=== PATIENT | male | born 1995 | race Caucasian/White ===

== ENCOUNTER 2017-10-04 10:49 | Emergency (ER) | payer MEDICAID, SELFPAY ==
[2017-10-04 10:53] VITALS: BP 168/84; PULSE 87; RESP 20; TEMP 36.3; O2SAT 97
--- NOTE | 2017-10-04 10:58 | DI.REPORT_ITS ---
SYMPTOM/DIAGNOSIS: TRAUMA WITH DISTAL PHALANX DEFORMITY LEFT MIDDLE FINGER: Three views. No acute fracture or dislocation is identified. No radiopaque foreign bodies are seen in the soft tissues IMPRESSION: No acute fracture or dislocation.
[2017-10-04] MEDS: Lidocaine 2% Multi-Dose 50 ML VIAL IJ (11:06)
--- NOTE | 2017-10-04 11:14 | ED.GENADUL ---
Disposition Clinical Impression: Sprain of left middle finger, Laceration of middle finger with damage to nail Disposition: HOME Condition: Stable Instructions: Finger Laceration (ED), Finger Sprain (ED), RICE Therapy (ED) Additional Instructions: He may utilize [id number] pain medication as needed for pain control and wear the splint over the next 2-3 days and then slowly begin using the affected digit. If you are not showing signs of improvement over the next week please follow-up with orthopedic office for arrangement of outpatient reassessment. Referrals: Bravo Garay MD [ [facility]AFF PHYSICIAN] - 2 weeks (If not improving over the next week please call orthopedic office for reassessment) Medical Decision Making - Radiology Data Radiology results: report reviewed, image reviewed - Medical Decision Making Patient presenting to the emergency department for chief complaint of possible finger dislocation. Patient states his finger got caught behind a piece of wood in a wood splitter. There is a slight laceration to the nailbed so there is concern for dislocation due to deformity versus slight open fracture of the distal phalanx. Otherwise patient denies any other injury or trauma and physical exam is unremarkable beyond noted laceration and deformity of distal phalanx. Sensation and cap refill is intact. Patient gave verbal consent to digital block of the finger and 3 mL's of 2% lidocaine was instilled into the base of the finger without any complications noted. Radiological imaging was also ordered of the finger for again rule out of dislocation versus fracture. After review of radiological imaging that shows no fracture or dislocation patient's finger was reassessed. There is concern for flexor tendon injury so Dr. Garay on-call orthopedist was contacted. He was able to come over and evaluate the patient and stated that more than likely this is just a sprain and not a tear of the flexor tendon and so patient may use a splint if this provides comfort control otherwise may slowly begin resuming normal activity as tolerated by discomfort. Patient was encouraged to use [id number] pain medication ice, and to follow-up with orthopedist if not improving over the next week. After discussion of diagnosis and plan of care with patient patient agreed and stated no further needs, questions, or concerns at this time. History of Present Illness - General Chief complaint: Orthopedic Stated complaint: DISLOCATED FINGER Time Seen by Provider: 10/04/17 10:57 Source: patient, RN notes reviewed Mode of arrival: ambulatory Limitations: no limitations - History of Present Illness Initial comments: Patient reports proximally 1 hour prior to arrival he was attempting to get a piece of wood that was stuck in the turner splitter out when his finger got stuck and injured his left middle finger. He states that it became deformed in this and slightly has a cut on his fingernail. Patient denies any other injury or trauma and states that he has sensation intact at the end of his finger but it is painful with movement. Onset/Timin -: hour(s) Location: left, upper extremity Severity scale (1-10): 7 Quality: aching, sharp Consistency: constant Improves with: none Worsens with: movement Associated Symptoms: denies other symptoms Treatments Prior to Arrival: none - Related Data Levalbuterol [Xopenex Hfa] 2 puff IH Q4H PRN #1 inhaler 07/14/12 Mometasone [Nasonex] 1 sprays NS DAILY #1 bottle 07/14/12 Loratadine 10 mg PO DAILY PRN #60 tab 09/16/14 Allergies Allergy/AdvReac Type Severity Reaction Status Date / Time No Known Drug Allergies Allergy Unverified 08/27/17 09:52 enviornmental Allergy Mild uri Uncoded 08/27/17 09:52 symptoms Review of Systems Constitutional: no symptoms reported Cardiovascular: denies: syncope Musculoskeletal: as per HPI Comment: All other systems reviewed and negative Past Medical History - Past Medical History Medical history: no medical history History of mononucleosis Surgical history: no surgical history Family history: no significant family history - Social History Smoking status: never smoker Alcohol use: occasionally Drug use: none Living Situation: lives with family General Exam - General Limitations: no limitations General appearance: alert, in no apparent distress - Head Head exam: Present: atraumatic - Eye Eye exam: Present: normal apperance - Respiratory Respiratory exam: Absent: respiratory distress - Cardiovascular Cardiovascular Exam: Present: regular rate, normal rhythm - Expanded Upper Extremity Exam Left Elbow exam: Present: normal inspection Forearm Wrist exam: Present: normal inspection, full ROM Hand Wrist exam: Present: swelling (To the distal middle finger), laceration (Slight what appears to be superficial laceration to the left middle finger nailbed), deformity (To the distal phalanx of the middle finger with what appears to be palmar displacement of the distal phalanx). Absent: subungual hematoma Neuro motor exam: Present: wrist extension intact, thumb adduction intact Neurosensory exam: Present: 2-point discrimination Vascular: Present: normal capillary refill (Distal to the injury), radial pulse (2+) - Neurological Exam Neurological exam: Present: alert, oriented X3. Absent: altered - Skin Skin exam: Present: warm, dry Course Vital Signs - 24 hr 10/04/17 10:53 Temperature 36.3 C L Pulse 87 Respiratory 20 Rate Blood Pressure 168/84 Pulse Oximetry 97
--- NOTE | 2017-10-04 11:17 | ED.GENADUL_ITS ---
Disposition Clinical Impression: Sprain of left middle finger, Laceration of middle finger with damage to nail Disposition: HOME Condition: Stable Instructions: Finger Laceration (ED), Finger Sprain (ED), RICE Therapy (ED) Additional Instructions: He may utilize [id number] pain medication as needed for pain control and wear the splint over the next 2-3 days and then slowly begin using the affected digit. If you are not showing signs of improvement over the next week please follow-up with orthopedic office for arrangement of outpatient reassessment. Referrals: Bravo Garay MD [ [facility]FF PHYSICIAN] - 2 weeks (If not improving over the next week please call orthopedic office for reassessment) Medical Decision Making - Radiology Data Radiology results: report reviewed, image reviewed - Medical Decision Making Patient presenting to the emergency department for chief complaint of possible finger dislocation. Patient states his finger got caught behind a piece of wood in a wood splitter. There is a slight laceration to the nailbed so there is concern for dislocation due to deformity versus slight open fracture of the distal phalanx. Otherwise patient denies any other injury or trauma and physical exam is unremarkable beyond noted laceration and deformity of distal phalanx. Sensation and cap refill is intact. Patient gave verbal consent to digital block of the finger and 3 mL's of 2% lidocaine was instilled into the base of the finger without any complications noted. Radiological imaging was also ordered of the finger for again rule out of dislocation versus fracture. After review of radiological imaging that shows no fracture or dislocation patient's finger was reassessed. There is concern for flexor tendon injury so Dr. Garay on-call orthopedist was contacted. He was able to come over and evaluate the patient and stated that more than likely this is just a sprain and not a tear of the flexor tendon and so patient may use a splint if this provides comfort control otherwise may slowly begin resuming normal activity as tolerated by discomfort. Patient was encouraged to use [id number] pain medication ice, and to follow-up with orthopedist if not improving over the next week. After discussion of diagnosis and plan of care with patient patient agreed and stated no further needs, questions, or concerns at this time. History of Present Illness - General Chief complaint: Orthopedic Stated complaint: DISLOCATED FINGER Time Seen by Provider: 10/04/17 10:57 Source: patient, RN notes reviewed Mode of arrival: ambulatory Limitations: no limitations - History of Present Illness Initial comments: Patient reports proximally 1 hour prior to arrival he was attempting to get a piece of wood that was stuck in the turner splitter out when his finger got stuck and injured his left middle finger. He states that it became deformed in this and slightly has a cut on his fingernail. Patient denies any other injury or trauma and states that he has sensation intact at the end of his finger but it is painful with movement. Onset/Timin -: hour(s) Location: left, upper extremity Severity scale (1-10): 7 Quality: aching, sharp Consistency: constant Improves with: none Worsens with: movement Associated Symptoms: denies other symptoms Treatments Prior to Arrival: none - Related Data Levalbuterol [Xopenex Hfa] 2 puff IH Q4H PRN #1 inhaler 07/14/12 Mometasone [Nasonex] 1 sprays NS DAILY #1 bottle 07/14/12 Loratadine 10 mg PO DAILY PRN #60 tab 09/16/14 Allergies Allergy/AdvReac Type Severity Reaction Status Date / Time No Known Drug Allergies Allergy Unverified 08/27/17 09:52 enviornmental Allergy Mild uri Uncoded 08/27/17 09:52 symptoms Review of Systems Constitutional: no symptoms reported Cardiovascular: denies: syncope Musculoskeletal: as per HPI Comment: All other systems reviewed and negative Past Medical History - Past Medical History Medical history: no medical history History of mononucleosis Surgical history: no surgical history Family history: no significant family history - Social History Smoking status: never smoker Alcohol use: occasionally Drug use: none Living Situation: lives with family General Exam - General Limitations: no limitations General appearance: alert, in no apparent distress - Head Head exam: Present: atraumatic - Eye Eye exam: Present: normal apperance - Respiratory Respiratory exam: Absent: respiratory distress - Cardiovascular Cardiovascular Exam: Present: regular rate, normal rhythm - Expanded Upper Extremity Exam Left Elbow exam: Present: normal inspection Forearm Wrist exam: Present: normal inspection, full ROM Hand Wrist exam: Present: swelling (To the distal middle finger), laceration ( Slight what appears to be superficial laceration to the left middle finger nailbed), deformity (To the distal phalanx of the middle finger with what appears to be palmar displacement of the distal phalanx). Absent: subungual hematoma Neuro motor exam: Present: wrist extension intact, thumb adduction intact Neurosensory exam: Present: 2-point discrimination Vascular: Present: normal capillary refill (Distal to the injury), radial pulse (2+) - Neurological Exam Neurological exam: Present: alert, oriented X3. Absent: altered - Skin Skin exam: Present: warm, dry Course Vital Signs - 24 hr 10/04/17 10:53 Temperature 36.3 C L Pulse 87 Respiratory 20 Rate Blood Pressure 168/84 Pulse Oximetry 97
== END 2017-10-04 12:40 | disposition home or self-care (01) ==
PROVIDERS: Emergency Provider Physician Assistant; PCP General Practice
DX: S63.613A Unspecified sprain of left middle finger, initial encounter (principal); S61.313A Laceration without foreign body of left middle finger with damage to nail, initial encounter; W23.0XXA Caught, crushed, jammed, or pinched between moving objects, initial encounter
CPT/HCPCS: 64450; 99283; 73140; 99282

== ENCOUNTER 2017-12-05 09:54 | Outpatient (CLI) | payer MEDICAID, SELFPAY ==
--- NOTE | 2017-12-05 09:44 | DI.RAD_ITS ---
SYMPTOMS/DIAGNOSIS: PAIN LEFT MIDDLE FINGER: Comparison is made with [id number]. No fracture is identified. The joint spaces are well maintained. Again noted is some hyperextension at the distal interphalangeal joint.
== END 2017-12-05 10:14 ==
PROVIDERS: PCP General Practice; Visit Provider Orthopaedic Surgery
DX: M79.645 Pain in left finger(s) (principal)
CPT/HCPCS: 73140

== ENCOUNTER 2017-12-15 23:11 | Emergency (ER) | payer MEDICAID, SELFPAY ==
[2017-12-15 23:16] VITALS: BP 164/86; PULSE 87; RESP 18; TEMP 37.6; O2SAT 98
--- NOTE | 2017-12-15 23:18 | W.ED.GENAD ---
Discharge Plan Disposition Patient Disposition: HOME Condition: Stable Discharge Details Chief Complaint: Nk/Back Pain Clinical Impression: Low back strain Primary Care Provider: Vijay Henry ED Provider: Wilfredo Rockwell Home Meds and New Rx's Prescriptions: New cyclobenzaprine 10 mg tablet 10 mg PO TID PRN (Reason: muscle spasm) Qty: 20 RF: 0 Continue mometasone [Nasonex] 17 GM spray,non-aerosol 1 spry NS DAILY Qty: 1 RF: 2 levalbuterol tartrate [Xopenex HFA] 15 GM HFA aerosol inhaler 2 puff Inhalation Q4H PRN Qty: 1 RF: 1 loratadine 10 MG tablet 10 mg PO DAILY PRNQty: 60 RF: 4 Discharge Instructions Instructions: Low Back Strain (ED) Additional Instructions: take 1000mg tylenol and 600mg ibuprofen every 6 hours for pain as needed. if you need additional pain relief take 1 flexeril, do not drink alcohol or drive if you take this medicine If you have fevers, abdominal pain or difficulty urinating return to the emergency department if pain continues in one week follow up with your primary care provider Discharge Data Discharge Physician: Wilfredo Rockwell Medical Decision Making 22 yo male who was lifting a heavy woodstovfe to try and prove he could do it per pt to this father about two hours ago, when he felt lower back pain acutely. Denies abdominal pain, difficulty urinating, fevers, chills, chest pain, sob or weakness. HAs pain throughout the lumbar region on exam, suspect lumbar strain or less likely disc herniation. No findings on hx or exam to suggest entities such as sea or cauda equina so do not feel emergent mri indicated. Will prescribe muscle relaxers and advised f/u with pcp if pain continues in one week Differential Diagnosis muscle strain, disc herniation HPI General Mode of arrival: ambulatory. Date/Time Provider Initiated Documentation: 12/15/17 23:16. Limitations to Documentation: no limitations. Information obtained by: patient. History of Present Illness 22 year old M presents to the emergency department with the chief complaint of low back pain, described as moderate, with intensity rated at 5. Quality is described as aching, and is localized to the back. Patient reports no radiation. Patient started experiencing this hour(s) (2) and it has been constant. No relieving factors improve symptom(s), No exacerbating factors reported . Patient notes no other symptoms.. Patient did receive the following treatments prior to arrival, none Related Data Home Medications Medication Instructions Recorded Confirmed levalbuterol tartrate [Xopenex HFA] 2 puff INHALATION Q4H PRN #1 07/14/12 12/15/17 inhaler mometasone [Nasonex] 1 spry NS DAILY #1 bottle 07/14/12 12/15/17 loratadine 10 mg PO DAILY PRN #60 tab 09/16/14 12/15/17 cyclobenzaprine 10 mg PO TID PRN #20 tab 12/15/17 Previous Rx's Medication Instructions Recorded cyclobenzaprine 10 mg PO TID PRN #20 tab 12/15/17 Allergies Allergy/AdvReac Type Severity Reaction Status Date / Time No Known Drug Allergies Allergy Unverified 12/15/17 23:24 enviornmental Allergy Mild uri Uncoded 12/15/17 23:24 symptoms Review of Systems Review of Systems All systems reviewed & are unremarkable except as noted in HPI and below Constitutional Denies chills, Denies fever(s) and Denies weakness ENT Denies change in voice Cardiovascular Denies chest pain and Denies dyspnea Respiratory Denies dyspnea Gastrointestinal Denies abdominal pain, Denies nausea and Denies vomiting Genitourinary Denies dysuria Integumentary/Breasts Denies rash Neurologic Denies weakness Psychiatric Denies depression Allergic/Immunologic Denies urticaria PFSH Family History Mother Essential hypertension Father Essential hypertension Grandfather Essential hypertension Maternal Aunt Diabetes [place] Asthma Medical History Allergic rhinitis Anxiety Asthma Social History Smoking/Tobacco Use Status: Never Surgical History GALLSTONES IN INFANT Exam Const General: no acute distress Orientation: alert HENMT Head: normal to inspection Ears: external ears normal General nose exam: external nose normal Mouth: moist mucous membranes Eyes General: appearance normal, both eyes and all related structures Neck Neck: normal visual inspection Resp Effort & Inspection: normal respiratory effort and able to speak in complete sentences Cardio Rate: regular rate Back/Spine/Pelvis Back: no CVA tenderness Cervical Spine: No cervical muscular tenderness Thoracic/Lumbar Spine: other (tenderness throughout the lumbar region, no stpeoffs or other palpable deformities, no saddle anesthesia and intact lower extremity sensation) Skin General skin exam: no rashes or lesions noted Neuro General: alert and oriented x3 Cognition: normal cognition Speech: speech normal Gait: normal gait Motor: muscle tone normal throughout Sensory Exam: no sensory deficits noted Extrem General: normal to inspection Psych Mental Status: mental status grossly normal
[2017-12-15] MEDS: Cyclobenzaprine 10 MG TAB PO (23:33)
== END 2017-12-15 23:47 | disposition home or self-care (01) ==
LOC: ER 23:46
PROVIDERS: Emergency Provider Emergency Medicine; PCP General Practice
DX: S39.012A Strain of muscle, fascia and tendon of lower back, initial encounter (principal); X50.0XXA Overexertion from strenuous movement or load, initial encounter
CPT/HCPCS: 99283

== ENCOUNTER 2018-04-01 11:33 | Outpatient (CLI) | payer MEDICAID, SELFPAY ==
[2018-04-03 15:28] LABS: Tissue Transglutaminase Ab IgA <1.2 U/mL; Tissue Transglutaminase Ab IgG 2.4 U/mL
== END 2018-04-01 11:53 ==
PROVIDERS: PCP General Practice; Visit Provider General Practice
DX: R19.7 Diarrhea, unspecified (principal)
CPT/HCPCS: 36415; 83516

== ENCOUNTER 2018-04-04 15:05 | Outpatient (CLI) | payer MEDICAID, SELFPAY ==
[2018-04-04 15:41] LABS: HCT 46.9 % (40.0-50.0); HGB 15.7 g/dL (13.5-17.5); Mean Corp. HGB Concentration 33.5 g/dL (32.0-36.0); Mean Corpuscular Volume 83.8 fL (80-95); Mean Platelet Volume 11.1 fL (8.0-11.0); Platelet Count 194 x1000/uL (130-400)
[2018-04-04 16:32] LABS: ALT 96 U/L (12-78); AST 37 U/L (15-37); Albumin 3.9 g/dL (3.4-5.0); Alkaline Phosphatase 100 U/L (46-116); Anion Gap 7.9 mmol/L (3-11); BUN 16 mg/dL (7-18); Bilirubin, Total 0.2 mg/dL (0.2-1.0); CO2 28.1 mmol/L (21.0-32.0); CREATININE 1.04 mg/dL (0.70-1.30); Calcium 9.2 mg/dL (8.5-10.1); Chloride 103 mmol/L (98-107); Glucose 107 mg/dL (70-100); Sodium 139 mmol/L (136-145); Total Protein 7.9 g/dL (6.4-8.2)
== END 2018-04-04 15:25 ==
PROVIDERS: PCP General Practice; Visit Provider General Practice
DX: R10.9 Unspecified abdominal pain (principal)
CPT/HCPCS: 36415; 80053; 85027

== ENCOUNTER 2018-04-16 21:25 | Emergency (ER) | payer MEDICAID, SELFPAY ==
[2018-04-16 21:44] VITALS: BP 167/100; PULSE 92; RESP 20; TEMP 36.8; O2SAT 97
[2018-04-16 23:29] LABS: Bilirubin Negative (Negative); Blood Negative (Negative); Clarity Clear; Glucose Negative (Negative); Ketones Negative (Negative); Leukocyte Esterase Negative (Negative); Nitrite Negative (Negative); Specific Gravity 1.025 (1.005-1.025); Urobilinogen 0.2 EU/dL (Up TO 0.2); pH 5.5 (5-8)
[2018-04-16 23:44] LABS: Abs Immature Grans 0.03 k/cumm (0.0-0.09); HCT 43.8 % (40.0-50.0); Mean Corp. HGB Concentration 34.2 g/dL (32.0-36.0); Mean Corpuscular Hemoglobin 28.4 pg (27.0-33.0); Mean Corpuscular Volume 82.8 fL (80-95); Mean Platelet Volume 11.4 fL (8.0-11.0); Platelet Count 168 x1000/uL (130-400); RBC 5.29 m/cumm (4.50-6.00); RBC Distribution Width 13.1 % (11.8-14.1)
[2018-04-16 23:59] LABS: ALT 85 U/L (12-78); AST 34 U/L (15-37); Absolute Basophil Count 0.22 k/cumm (0.0-0.2); Absolute Eosinophil Count 1.64 k/cumm (0.0-0.7); Absolute Lymphocyte Count 4.03 k/cumm (1.2-3.4); Absolute Monocyte Count 1.31 k/cumm (0.11-0.7); Absolute Neutrophil Count 3.71 k/cumm (1.2-6.7); Albumin 3.5 g/dL (3.4-5.0); Alkaline Phosphatase 87 U/L (46-116); Anion Gap 8.2 mmol/L (3-11); Atypical Lymphocytes % 0; BUN 16 mg/dL (7-18); Bilirubin, Total 0.2 mg/dL (0.2-1.0); CO2 28.8 mmol/L (21.0-32.0); CREATININE 0.88 mg/dL (0.70-1.30); Calcium 9.3 mg/dL (8.5-10.1); Chloride 104 mmol/L (98-107); Glucose 104 mg/dL (70-100); Lipase 81 U/L (73-393); RBC Morphology Normal; Sodium 141 mmol/L (136-145); Total Protein 7.5 g/dL (6.4-8.2)
--- NOTE | 2018-04-16 23:59 | NUR.NOTE ---
Nursing Note: Pt in no acute distress, texting on cell phone while sitting in bed. will continue to monitor.
--- NOTE | 2018-04-17 00:04 | W.ED.GENAD ---
Discharge Plan Disposition Patient Disposition: HOME Condition: Stable Discharge Details Chief Complaint: Abd Prob Clinical Impression: Abdominal pain Reason For Visit: abd pain Primary Care Provider: Vijay Henry ED Provider: Haroon Rosario Home Meds and New Rx's Prescriptions: Continued mometasone [Nasonex] 17 GM spray,non-aerosol 1 spry NS DAILY Qty: 1 RF: 2 levalbuterol tartrate [Xopenex HFA] 15 GM HFA aerosol inhaler 2 puff Inhalation Q4H PRN Qty: 1 RF: 1 loratadine 10 MG tablet 10 mg PO DAILY PRNQty: 60 RF: 4 cyclobenzaprine 10 mg tablet 10 mg PO TID PRN (Reason: muscle spasm) Qty: 20 RF: 0 Discharge Instructions Instructions: Abdominal Pain (ED) Additional Instructions: For further discomfort please take acetaminophen 650-1000 mg every 6 hours as needed for pain. Please return immediately to the emergency department for new or worsening symptoms, fever chills, persistent vomiting, or any further concerns you may have. Otherwise it is strongly encourage that you keep your follow-up appointment with general surgery for arrangement of your colonoscopy. Referrals: [facility] [Provider Group] (Keep your appointment as scheduled for Saturday) Discharge Data Discharge Date/Time-TO BE ENTERED AT DEPARTURE: 04/17/18 00:35 Medical Decision Making Patient presenting to the emergency department for chief complaint of abdominal pain. Patient states that this is been going on for months but today while talking to his father which is recently diagnosed with diverticulitis he is wondering if his symptoms are consistent with diverticulitis. Patient states intermittent epigastric discomfort after eating that he is also had some bloody stools for 2 months. Patient has seen multiple ER providers along with his primary care provider which has arranged for him to have a surgical consult next week for colonoscopy. Patient denies fever chills, vomiting, lack of bowel movements. Physical exam shows some left lower quadrant tenderness which is mild to palpation otherwise and on exam. Patient does report recent CT scan and no mention of diverticuli. Given the patient's age and duration of symptoms I highly doubt diverticulitis. Plan to check labs and review previous CT imaging but I do not feel that repeat imaging is worth it at this time given patient's age and ongoing symptoms with surgical consult for colonoscopy which I feel may be more revealing of true diagnosis. Review of labs is reassuring with nondiagnostic CMP, CBC showing nonspecific mild leukocytosis without signs of shift, normal urinalysis normal lipase. Review of CT scan from less than 1 month ago shows no inflammatory bowel changes, no diverticuli, no other acute findings noted. Given this I did discuss with patient risk versus benefit of CT scan given that he does have colonoscopy arranged for early next week. After discussion we agreed upon no CT imaging at this time as I feel that it is not required but for patient to use acetaminophen for pain, return to the emergency department as needed, and otherwise keep appointment with general surgery for next week. After discussion of diagnosis and plan of care patient has no further needs, questions, or concerns and states clear understanding to return to the emergency department for any worsening symptoms. HPI General Date/Time Provider Initiated Documentation: 04/16/18 21:54. Limitations to Documentation: no limitations. Information obtained by: patient, RN notes reviewed and old records reviewed. History of Present Illness 23 year old M presents to the emergency department with the chief complaint of abd pain, described as moderate, with intensity rated at 6. Quality is described as aching, and is localized to the abdomen. Patient started experiencing this month(s) (2) and it has been constant and intermittent. No relieving factors improve symptom(s), Eating worsens symptoms . Patient notes no other symptoms.. Patient did receive the following treatments prior to arrival, none Related Data Home Medications Medication Instructions Recorded Confirmed levalbuterol tartrate [Xopenex HFA] 2 puff INHALATION Q4H PRN #1 07/14/12 12/15/17 inhaler mometasone [Nasonex] 1 spry NS DAILY #1 bottle 07/14/12 12/15/17 loratadine 10 mg PO DAILY PRN #60 tab 09/16/14 12/15/17 cyclobenzaprine 10 mg PO TID PRN #20 tab 12/15/17 Previous Rx's Medication Instructions Recorded cyclobenzaprine 10 mg PO TID PRN #20 tab 12/15/17 Allergies Allergy/AdvReac Type Severity Reaction Status Date / Time No Known Drug Allergies Allergy Unverified 12/15/17 23:24 enviornmental Allergy Mild uri Uncoded 12/15/17 23:24 symptoms General Stated Complaint: Abd Prob ALLISON: 3 Review of Systems Constitutional Denies chills, Denies fever(s) and Reports poor appetite Cardiovascular Denies chest pain and Denies dyspnea Respiratory Denies cough and Denies dyspnea Gastrointestinal Reports as per HPI, Reports abdominal pain, Denies melena, Reports hematochezia, Denies change in bowel habits, Denies constipation, Reports diarrhea, Denies nausea and Denies vomiting Genitourinary Denies hematuria, Denies difficulty urinating, Denies urinary hesitancy, Denies urinary incontinence and Denies urinary urgency Integumentary/Breasts Denies rash [facility] Medical History Diarrhea (Chronic) Obesity (Chronic) Allergic rhinitis Anxiety Asthma Surgical History GALLSTONES IN INFANT Family History Mother Essential hypertension Father Essential hypertension Grandfather Essential hypertension Maternal Aunt Diabetes SIBLING Asthma Social History Smoking and Tabacco status: Never Exam Const General: cooperative Nutritional Appearance: obese Orientation: alert, awake and oriented x3 Resp Effort & Inspection: normal respiratory effort and able to speak in complete sentences Auscultation: clear to auscultation bilaterally Cardio Rate: regular rate Rhythm: regular rhythm Heart Sounds: S1 normal and S2 normal GI Palpation: soft, no hepatosplenomegaly, not firm, no guarding, no masses, no pulsatile masses, not rigid, no splenomegaly and tender in the LLQ Auscultation: normal bowel sounds Rectal Exam: deferred Back/Spine/Pelvis Back: no CVA tenderness Neuro General: alert, awake, oriented x3, gait normal and moves all extremities Course Vital Signs Temperature 36.8 C 04/16/18 21:44 Pulse 92 H 04/16/18 21:44 Respiratory Rate 20 04/16/18 21:44 Blood Pressure 167/100 H 04/16/18 21:44 Pulse Oximetry 97 04/16/18 21:44 Temperature 36.8 C 04/16/18 21:44 Temperature Source Temporal Artery Scan 04/16/18 21:44 Pulse 92 H 04/16/18 21:44 Respiratory Rate 20 04/16/18 21:44 Respiratory Effort Non-Labored 04/16/18 21:44 Blood Pressure 167/100 H 04/16/18 21:44 Blood Pressure Position Sitting 04/16/18 21:44 Pulse Oximetry 97 04/16/18 21:44 Oxygen Delivery Method Room Air 04/16/18 21:44 Oxygen Flow Rate 0 04/16/18 21:44 Pain Level 8 04/16/18 21:44 Lab/Test Results Lab/Test Results: Laboratory Tests Range/Units 04/16/18 04/16/18 04/16/18 23:15 23:38 23:38 WBC (4.4-10.8) k/cumm 10.90 H RBC (4.50-6.00) m/cumm 5.29 Hgb (13.5-17.5) g/dL 15.0 Hct (40.0-50.0) % 43.8 MCV (80-95) fL 82.8 MCH (27.0-33.0) pg 28.4 MCHC (32.0-36.0) g/dL 34.2 RDW (11.8-14.1) % 13.1 Plt Count (130-400) x1000/uL 168 MPV (8.0-11.0) fL 11.4 H Immature Gran % 0.0 Neutrophils % 34.0 Band Neutrophils % % 0.0 Lymphocytes % 37.0 Atypical Lymphs % 0 Monocytes % 12.0 Eosinophils % 15.0 Basophils % 2.0 Absolute Neutrophils (1.2-6.7) k/cumm 3.71 Absolute Lymphocytes (1.2-3.4) k/cumm 4.03 H Absolute Monocytes (0.11-0.7) k/cumm 1.31 H Absolute Eosinophils (0.0-0.7) k/cumm 1.64 H Absolute Basophils (0.0-0.2) k/cumm 0.22 H Differential Comment RBC Morphology Normal Sodium (136-145) mmol/L 141 Potassium (3.5-5.1) mmol/L 4.0 Chloride (98-107) mmol/L 104 Carbon Dioxide (21.0-32.0) mmol/L 28.8 Anion Gap (3-11) mmol/L 8.2 BUN (7-18) mg/dL 16 Creatinine (0.70-1.30) mg/dL 0.88 Estimated GFR/1.73 m2 (mL/min/1.73m2) >= 60.00 Glucose (70-100) mg/dL 104 H Calcium (8.5-10.1) mg/dL 9.3 Total Bilirubin (0.2-1.0) mg/dL 0.2 AST (15-37) U/L 34 ALT (12-78) U/L 85 H Alkaline Phosphatase (46-116) U/L 87 Total Protein (6.4-8.2) g/dL 7.5 Albumin (3.4-5.0) g/dL 3.5 Lipase (73-393) U/L 81 Urine Color (Yellow) Yellow Urine Clarity Clear Urine pH (5-8) 5.5 Ur Specific Sylvester (1.005-1.025) 1.025 Urine Protein (Negative) mg/dL Negative Urine Ketones (Negative) mg/dL Negative Urine Blood (Negative) Negative Urine Nitrite (Negative) Negative Urine Bilirubin (Negative) Negative Urine Urobilinogen (Up TO 0.2) EU/dL 0.2 Ur Leukocyte Esterase (Negative) Negative Urine Glucose (Negative) mg/dL Negative
--- NOTE | 2018-04-17 00:10 | ED.GENADUL_ITS ---
Discharge Plan Disposition Patient Disposition: HOME Condition: Stable Discharge Details Chief Complaint: Abd Prob Clinical Impression: Abdominal pain Reason For Visit: abd pain Primary Care Provider: Vijay Henry ED Provider: Haroon Rosario Home Meds and New Rx's Prescriptions: Continued mometasone [Nasonex] 17 GM spray,non-aerosol 1 spry NS DAILY Qty: 1 RF: 2 levalbuterol tartrate [Xopenex HFA] 15 GM HFA aerosol inhaler 2 puff Inhalation Q4H PRN Qty: 1 RF: 1 loratadine 10 MG tablet 10 mg PO DAILY PRNQty: 60 RF: 4 cyclobenzaprine 10 mg tablet 10 mg PO TID PRN (Reason: muscle spasm) Qty: 20 RF: 0 Discharge Instructions Instructions: Abdominal Pain (ED) Additional Instructions: For further discomfort please take acetaminophen 650-1000 mg every 6 hours as needed for pain. Please return immediately to the emergency department for new or worsening symptoms, fever chills, persistent vomiting, or any further concerns you may have. Otherwise it is strongly encourage that you keep your follow-up appointment with general surgery for arrangement of your colonoscopy. Referrals: [facility] [Provider Group] (Keep your appointment as scheduled for Saturday) Discharge Data Discharge Date/Time-TO BE ENTERED AT DEPARTURE: 04/17/18 00:35 Medical Decision Making Patient presenting to the emergency department for chief complaint of abdominal pain. Patient states that this is been going on for months but today while talking to his father which is recently diagnosed with diverticulitis he is wondering if his symptoms are consistent with diverticulitis. Patient states intermittent epigastric discomfort after eating that he is also had some bloody stools for 2 months. Patient has seen multiple ER providers along with his primary care provider which has arranged for him to have a surgical consult next week for colonoscopy. Patient denies fever chills, vomiting, lack of bowel movements. Physical exam shows some left lower quadrant tenderness which is mild to palpation otherwise and on exam. Patient does report recent CT scan and no mention of diverticuli. Given the patient's age and duration of symptoms I highly doubt diverticulitis. Plan to check labs and review previous CT imaging but I do not feel that repeat imaging is worth it at this time given patient's age and ongoing symptoms with surgical consult for colonoscopy which I feel may be more revealing of true diagnosis. Review of labs is reassuring with nondiagnostic CMP, CBC showing nonspecific mild leukocytosis without signs of shift, normal urinalysis normal lipase. R eview of CT scan from less than 1 month ago shows no inflammatory bowel changes, no diverticuli, no other acute findings noted. Given this I did discuss with patient risk versus benefit of CT scan given that he does have colonoscopy arranged for early next week. After discussion we agreed upon no CT imaging at this time as I feel that it is not required but for patient to use acetaminophen for pain, return to the emergency department as needed, and otherwise keep appointment with general surgery for next week. After discussion of diagnosis and plan of care patient has no further needs, questions, or concerns and states clear understanding to return to the emergency department for any worsening symptoms. HPI General Date/Time Provider Initiated Documentation: 04/16/18 21:54 . Limitations to Documentation: no limitations . Information obtained by: patient, RN notes reviewed and old records reviewed . History of Present Illness 23 year old M presents to the emergency department with the chief complaint of abd pain, described as moderate, with intensity rated at 6. Quality is described as aching, and is localized to the abdomen. Patient started experiencing this month(s) (2) and it has been constant and intermittent. No relieving factors improve symptom(s), Eating worsens symptoms . Patient notes no other symptoms.. Patient did receive the following treatments prior to arrival, none Related Data Home Medications Medication Instructions Recorded Confirmed levalbuterol tartrate [Xopenex HFA] 2 puff INHALATION Q4H PRN #1 07/14/12 12/15/17 inhaler mometasone [Nasonex] 1 spry NS DAILY #1 bottle 07/14/12 12/15/17 loratadine 10 mg PO DAILY PRN #60 tab 09/16/14 12/15/17 cyclobenzaprine 10 mg PO TID PRN #20 tab 12/15/17 Previous Rx's Medication Instructions Recorded cyclobenzaprine 10 mg PO TID PRN #20 tab 12/15/17 Allergies Allergy/AdvReac Type Severity Reaction Status Date / Time No Known Drug Allergies Allergy Unverified 12/15/17 23:24 enviornmental Allergy Mild uri Uncoded 12/15/17 23:24 symptoms General Stated Complaint: Abd Prob ALLISON: 3 Review of Systems Constitutional Denies chills, Denies fever(s) and Reports poor appetite Cardiovascular Denies chest pain and Denies dyspnea Respiratory Denies cough and Denies dyspnea Gastrointestinal Reports as per HPI, Reports abdominal pain, Denies melena, Reports hematochezia, Denies change in bowel habits, Denies constipation, Reports diarrhea, Denies nausea and Denies vomiting Genitourinary Denies hematuria, Denies difficulty urinating, Denies urinary hesitancy, Denies urinary incontinence and Denies urinary urgency Integumentary/Breasts Denies rash [facility] Medical History Diarrhea (Chronic) Obesity (Chronic) Allergic rhinitis Anxiety Asthma Surgical History GALLSTONES IN Family History Mother Essential hypertension Father Essential hypertension Grandfather Essential hypertension Maternal Aunt Diabetes SIBLING Asthma Social History Smoking and Tabacco status: Never Exam Const General: cooperative Nutritional Appearance: obese Orientation: alert, awake and oriented x3 Resp Effort & Inspection: normal respiratory effort and able to speak in complete sentences Auscultation: clear to auscultation bilaterally Cardio Rate: regular rate Rhythm: regular rhythm Heart Sounds: S1 normal and S2 normal GI Palpation: soft, no hepatosplenomegaly, not firm, no guarding, no masses, no p ulsatile masses, not rigid, no splenomegaly and tender in the LLQ Auscultation: normal bowel sounds Rectal Exam: deferred Back/Spine/Pelvis Back: no CVA tenderness Neuro General: alert, awake, oriented x3, gait normal and moves all extremities Course Vital Signs Temperature 36.8 C 04/16/18 21:44 Pulse 92 H 04/16/18 21:44 Respiratory Rate 04/16/18 21:44 Blood Pressure 167/100 H 04/16/18 21:44 Pulse Oximetry 97 04/16/18 21:44 Temperature 36.8 C 04/16/18 21:44 Temperature Source Temporal Artery Scan 04/16/18 21:44 Pulse 92 H 04/16/18 21:44 Respiratory Rate 20 04/16/18 21:44 Respiratory Effort Non-Labored 04/16/18 21:44 Blood Pressure 167/100 H 04/16/18 21:44 Blood Pressure Position Sitting 04/16/18 21:44 Pulse Oximetry 97 04/16/18 21:44 Oxygen Delivery Method Room Air 04/16/18 21:44 Oxygen Flow Rate 0 04/16/18 21:44 Pain Level 8 04/16/18 21:44 Lab/Test Results Lab/Test Results: Laboratory Tests Range/Units 04/16/18 04/16/18 04/16/18 23:15 23:38 23:38 WBC (4.4-10.8) k/cumm 10.90 H RBC (4.50-6.00) m/cumm 5.29 Hgb (13.5-17.5) g/dL 15.0 Hct (40.0-50.0) % 43.8 MCV (80-95) fL 82.8 MCH (27.0-33.0) pg 28.4 MCHC (32.0-36.0) g/dL 34.2 RDW (11.8-14.1) % 13.1 Plt Count (130-400) x1000/uL 168 MPV (8.0-11.0) fL 11.4 H Immature Gran % 0.0 Neutrophils % 34.0 Band Neutrophils % % 0.0 Lymphocytes % 37.0 Atypical Lymphs % 0 Monocytes % 12.0 Eosinophils % 15.0 Basophils % 2.0 Absolute Neutrophils (1.2-6.7) k/cumm 3.71 Absolute Lymphocytes (1.2-3.4) k/cumm 4.03 H Absolute Monocytes (0.11-0.7) k/cumm 1.31 H Absolute Eosinophils (0.0-0.7) k/cumm 1.64 H Absolute Basophils (0.0-0.2) k/cumm 0.22 H Differential Comment RBC Morphology Normal Sodium (136-145) mmol/L 141 Potassium (3.5-5.1) mmol/L 4.0 Chloride (98-107) mmol/L 104 Carbon Dioxide (21.0-32.0) mmol/L 28.8 Anion Gap (3-11) mmol/L 8.2 BUN (7-18) mg/dL 16 Creatinine (0.70-1.30) mg/dL 0.88 Estimated GFR/1.73 m2 (mL/min/1.73m2) >= 60.00 Glucose (70-100) mg/dL 104 H Calcium (8.5-10.1) mg/dL 9.3 Total Bilirubin (0.2-1.0) mg/dL 0.2 AST (15-37) U/L 34 ALT (12-78) U/L 85 H Alkaline Phosphatase (46-116) U/L 87 Total Protein (6.4-8.2) g/dL 7.5 Albumin (3.4-5.0) g/dL 3.5 Lipase (73-393) U/L 81 Urine Color (Yellow) Yellow Urine Clarity Clear Urine pH (5-8) 5.5 Ur Specific Monette (1.005-1.025) 1.025 Urine Protein (Negative) mg/dL Negative Urine Ketones (Negative) mg/dL Negative Urine Blood (Negative) Negative Urine Nitrite (Negative) Negative Urine Bilirubin (Negative) Negative Urine Urobilinogen (Up TO 0.2) EU/dL 0.2 Ur Leukocyte Esterase (Negative) Negative Urine Glucose (Negative) mg/dL Negative
== END 2018-04-17 00:35 | disposition home or self-care (01) ==
PROVIDERS: Emergency Provider Nurse Practitioner Family; PCP General Practice
DX: R10.9 Unspecified abdominal pain (principal)
CPT/HCPCS: 36415; 80053; 83690; 99283; 81003; 85025

== ENCOUNTER 2018-04-21 12:44 | Outpatient (CLI) | payer MEDICAID, SELFPAY ==
[2018-04-21 13:13] LABS: Hemoglobin A1C 5.6 % (4.5-6.2)
[2018-04-21 13:16] LABS: Prothrombin Time 10.1 sec (9.3-11.0)
[2018-04-21 13:55] LABS: ALT 79 U/L (12-78); AST 39 U/L (15-37); Albumin 3.8 g/dL (3.4-5.0); Alkaline Phosphatase 94 U/L (46-116); Amylase 30 U/L (25-115); Bilirubin, Direct 0.09 mg/dL (0.00-0.20); Bilirubin, Total 0.3 mg/dL (0.2-1.0); Lipase 74 U/L (73-393); Total Protein 7.7 g/dL (6.4-8.2)
[2018-04-21 15:34] LABS: Cholesterol 234 mg/dL (50-200)
[2018-04-21 17:28] LABS: ESR 13 MM/HR (0-15)
== END 2018-04-21 13:04 ==
PROVIDERS: PCP General Practice; Visit Provider Surgery
DX: K75.81 Nonalcoholic steatohepatitis (NASH) (principal); R19.7 Diarrhea, unspecified; K76.0 Fatty (change of) liver, not elsewhere classified; Z90.49 Acquired absence of other specified parts of digestive tract
CPT/HCPCS: 36415; 80076; 83690; 85652; 82150; 82465; 83036; 85610

== ENCOUNTER 2018-04-29 13:51 | Outpatient (CLI) | payer MEDICAID, SELFPAY | END 2018-04-29 14:11 | PROVIDERS: Visit Provider Surgery | DX: Z01.818 Encounter for other preprocedural examination (principal) ==

== ENCOUNTER 2018-05-02 06:26 | Day surgery (SDC) | payer MEDICAID, SELFPAY ==
[2018-04-29 14:08] VITALS: BP 152/93; PULSE 83; RESP 20; TEMP 36; O2SAT 98
[2018-05-02 06:35] VITALS: BP 122/75; PULSE 85; RESP 20; TEMP 34.9; O2SAT 97
[2018-05-02] MEDS: Lactated Ringers 1,000 ML 80 ML IV (06:54)
[2018-05-02] MEDS: Lidocaine 2% Viscous 15 ML CUP (07:55)
--- NOTE | 2018-05-02 08:06 | BOWEL_PTH ---
PATIENT: Wilfredo Moreno LOC: [facility] U#:[id number] AGE/SX: 23/M ROOM: RE05/02/[address]: Padma Cabello : 1995 BED: DIS: 05/02/2018 SPEC #: [id number] RECD: 05/02/18 12:51 STATUS: CHANELLE POST #: [id number] JARRED: 05/02/18 08:[address]: Padma Cabello DEPT: Surgical Specimen RECD BY: Lana Quiros Tissues: 1 - BIOPSY BOWEL 2 - STOMACH BIOPSY 3 - STOMACH BIOPSY 4 - ESOPHAGUS BIOPSY 5 - ESOPHAGUS BIOPSY 6 - BIOPSY BOWEL 7 - BIOPSY BOWEL 8 - BIOPSY BOWEL 9 - BIOPSY BOWEL Procedures: GROSS AND MICRO LEVEL 4 IMMUNOPEROXIDASE STAIN Comments: [id number]
--- NOTE | 2018-05-02 08:43 | W.PM.ENDDOP ---
Date of service: 05/02/18 Time of Service: 08:43 Endoscopy Report DATE OF PROCEDURE: 05/02/18 PRE-OP DIAGNOSIS: Nausea vomting and wt loss and chronic diarrhea POST-OP DIAGNOSIS: other PROCEDURE: bile reflux gastritis SURGEON: Padma Cabello ANESTHESIA: GETA ESTIMATED BLOOD LOSS: 2 PATHOLOGY: other COMPLICATIONS: None DISPOSITION: PACU INDICATIONS: see H & P PREP: Miralax COLONOSCOPY RETRACTION TIME: 8 mins. FINDINGS: psot Op Dg PROCEDURE DESCRIPTION: dictated
[2018-05-02 09:00] VITALS: BP 115/71; PULSE 88; RESP 16; TEMP 36.2; O2SAT 97
--- NOTE | 2018-05-02 12:15 | ROE_ITS ---
REPORT OF OPERATIVE PROCEDURE DATE OF PROCEDURE May 02, 2018 PREOPERATIVE DIAGNOSES Nausea and vomiting, and inability to tolerate p.o. Retractable diarrhea. POSTOPERATIVE DIAGNOSES Bile reflux gastritis. intractable diarrhea. SURGEON Padma Cabello D.O. ANESTHESIA MAC ESTIMABED BLOOD LOSS Less than 2 cc CONDITION Patient tolerated the procedure well without complications. INDICATION FOR PROCEDURE Mr. Moreno is a 23-year-old male seen at the request of his primary care physician, Dr. Henry, regarding intractable nausea, vomiting, weight loss and intractable diarrhea. He is here today for EGD colonoscopy. Informed consent has been obtained. Explained risks and benefits of the procedure, including but not limited to bleeding, infection, perforation, aspiration, and other complications from the anesthesia. PROCEDURE DESCRIPTION The patient was brought to the Operative Suite and placed in the left lateral decubitus position. IV sedation is administered per conscious sedation protocol. The previously-lubricated Olympus scope was inserted into the oropharynx and passed down into the esophagus. There were no esophageal erosions, varices, diverticula or stricture apparent. There are some very mild changes diffusely but more so in the dependent portions of the stomach in a scattered region. Biopsies are taken of this. The antrum is fairly patent. The first and second portions of the duodenum appears normal, biopsies are taken of the duodenal bulb. The scope was then returned to the stomach. There is definitely bile into the stomach and there is reflux up into the esophagus. Biopsies are taken of the antrum and the greater curvatures. There is no bleeding noted. Retroflexion is performed. There is no hiatal hernia. Biopsies are taken of the GE junction, and the distal esophagus. The esophagus and the GE junction appear normal. There are some signs of esophagitis. All specimens retrieved. There is no bleeding noted throughout. The scopes are exchanged. The external rectal exam is performed prior to beginning the procedure and reveals no anal pathology. The scope was lubricated and then it was inserted in the rectum. The scope was passed into the rectum and passed to the transverse colon, down the ascending colon to the cecum to 90 cm. The patient had a poor prep and any small lesions could be missed. Biopsies were taken of the cecum at 80 centimeters, 40 centimeters into the rectum. The colon was grossly normal. There are no abnormalities noted. Again, he had a poor prep and again any small lesions could be missed. There was no bleeding from the biopsy sites. All specimens were retrieved. The patient tolerated the procedure well without complications. He was returned to the out-patient department in stable condition. The patient will be discharged home on Prevacid and on cholestyramine, and I will see him in the office in two weeks for followup.
== END 2018-05-02 10:13 | disposition home or self-care (01) ==
PROVIDERS: Visit Provider Surgery
PROC: 0DJD8ZZ Inspection of Lower Intestinal Tract, Via Natural or Artificial Opening Endoscopic (ICD-10-PCS; CPT 45378; principal; 2018-05-02 07:30)
PROC: 0DJ68ZZ Inspection of Stomach, Via Natural or Artificial Opening Endoscopic (ICD-10-PCS; CPT 43235; 2018-05-02 07:30)
DX: R19.7 Diarrhea, unspecified (principal); R11.2 Nausea with vomiting, unspecified; K22.70 Barrett's esophagus without dysplasia; K21.0 Gastro-esophageal reflux disease with esophagitis; K29.50 Unspecified chronic gastritis without bleeding; K31.89 Other diseases of stomach and duodenum; I10 Essential (primary) hypertension; G47.33 Obstructive sleep apnea (adult) (pediatric)
CPT/HCPCS: 45380; 43239; 88305; 88361; J2250

== ENCOUNTER 2018-09-19 16:47 | Outpatient (CLI) | payer MEDICAID, SELFPAY ==
[2018-09-22 10:01] LABS: IgA 134 mg/dL (85-499); IgG 1256 mg/dL (610-1616)
[2018-09-24 00:39] LABS: Gliadin (Deamidated) Ab, IgA <10.0 U; Gliadin (Deamidated) Ab, IgG <10.0 U
== END 2018-09-19 17:07 ==
PROVIDERS: PCP Physician Assistant Medical; Visit Provider Internal Medicine Gastroenterology
DX: R10.10 Upper abdominal pain, unspecified (principal)
CPT/HCPCS: 36415; 82784; 83516

== ENCOUNTER 2020-11-01 17:00 | Emergency (ER) | payer MEDICAID, SELFPAY ==
[2020-11-01 17:20] VITALS: BP 168/100; PULSE 79; TEMP 37.8; O2SAT 98
--- NOTE | 2020-11-01 17:30 | DI.RAD_ITS ---
Exam(s) XR PORTABLE CHEST AP EXAM: XR PORTABLE CHEST AP CLINICAL HISTORY: cough fever. TECHNIQUE: 2D digital imaging was performed. COMPARISON: CR CHEST 2 VIEWS PA,LAT from 04/12/2015 FINDINGS: Heart size is normal. The mediastinum is not widened. Lungs are clear. No infiltrates nor obvious pleural effusions. IMPRESSION: No acute pulmonary findings on this single AP portable view of the chest. DATA REPOSITORY: RADIATION DOSE DELIVERED: All CT scans at this facility use at least one of these dose optimization techniques: automated exposure control; mA and/or kV adjustment per patient size (includes targeted e xams where dose is matched to clinical indication); or iterative reconstruction.
[2020-11-01] MEDS: Acetaminophen 500 MG TAB 1000 MG PO (17:58)
[2020-11-01 17:59] LABS: Abs Immature Grans 0.03 10^3/uL (0.0-0.06); Absolute Basophil Count 0.03 10^3/uL (0.0-0.2); Absolute Eosinophil Count 0.13 10^3/uL (0.0-0.7); Absolute Lymphocyte Count 1.94 10^3/uL (1.2-3.4); Absolute Monocyte Count 0.51 10^3/uL (0.1-0.8); Absolute Neutrophil Count 3.41 10^3/uL (1.2-6.7); Basophils % 0.5; Eosinophils % 2.1; HCT 46.8 % (40.0-50.0); HGB 14.8 g/dL (13.5-17.5); Immature Grans % 0.5; Lymphocytes % 32.1; MCH 26.5 pg (27.0-33.0); MCHC 31.6 % (32.0-36.0); MCV 83.7 fL (80-95); MPV 10.9 fL (8.0-11.0); Monocytes % 8.4; Neutrophils % 56.4; Nucleated RBC 0 %; Platelet Count 183 10^3/uL (130-400); RBC 5.59 10^6/uL (4.36-5.78); RDW 13.9 % (11.8-14.1); RDW-SD 42.8 fL; WBC 6.05 10^3/uL (4.4-10.8)
[2020-11-01] MEDS: Ketorolac 30 MG/ML VIAL IVP (17:59)
[2020-11-01] MEDS: Normal Saline 1,000 ML 1000 ML IV (17:59)
[2020-11-01 18:04] VITALS: RESP 18
[2020-11-01 18:16] LABS: ALT 56 U/L (16-63); AST 36 U/L (15-37); Albumin 3.6 g/dL (3.4-5.0); Alkaline Phosphatase 92 U/L (46-116); Anion Gap 7.1 mmol/L (3-11); BUN 12 mg/dL (7-18); Bilirubin, Total 0.4 mg/dL (0.2-1.0); CO2 28.9 mmol/L (21.0-32.0); CREATININE 1.1 mg/dL (0.70-1.30); Calcium 8.8 mg/dL (8.5-10.1); Chloride 103 mmol/L (98-107); Glucose 87 mg/dL (74-106); Potassium 4.1 mmol/L (3.5-5.1); Sodium 139 mmol/L (136-145); Total Protein 8.2 g/dL (6.4-8.2)
--- NOTE | 2020-11-01 19:05 | DI.VRAD_ITS ---
PROCEDURE INFORMATION: Exam: XR Chest Exam date and time: 11/01/2020 5:45 PM Age: 25 years old Clinical indication: Cough and fever; Patient HX: Fever cough TECHNIQUE: Imaging protocol: XR of the chest. Views: 1 view. COMPARISON: CR CHEST 2 VIEWS PA,LAT 04/12/2015 1:58 PM FINDINGS: Lungs: Unremarkable. No consolidation. Pleural spaces: Unremarkable. No pleural effusion. No pneumothorax. Heart/Mediastinum: Unremarkable. No cardiomegaly. Bones/joints: Unremarkable. IMPRESSION: No acute findings. Dictated and Authenticated by: Abraham Cherry MD. Ordering:PENG Stallings MD
[2020-11-01 19:19] VITALS: BP 133/78; PULSE 78; RESP 20; TEMP 37.6; O2SAT 96
--- NOTE | 2020-11-01 19:32 | ED.GENADUL_ITS ---
Discharge Plan Disposition Patient Disposition: HOME Condition: Stable Discharge Details Clinical Impression: URI (upper respiratory infection) Primary Care Provider: Serafin Rahman ED Provider: Chandrakant Blank Home Meds and New Rx's Prescriptions: Continued levalbuterol tartrate [Xopenex HFA] 15 GM HFA aerosol inhaler 2 puff Inhalation Q4H PRN Qty: 1 RF: 1 loratadine 10 MG tablet 10 mg PO DAILY PRNQty: 60 RF: 4 mometasone [Nasonex] 50 mcg/actuation spray,non-aerosol 1 spray NS DAILY PRN (Reason: allergy symptoms) Qty: 1 RF: 2 lansoprazole [Prevacid] 30 mg capsule,delayed release(DR/EC) 30 mg PO DAILY Qty: 30 RF: 11 Cholestyramine Light 4 gram powder 4 gm PO BID Qty: 231 RF: 11 lisinopril 10 mg tablet 10 mg PO DAILY RF: 0 dicyclomine 10 mg capsule 10 mg PO DAILY RF: 0 Discharge Instructions Instructions: Upper Respiratory Infection (ED) Additional Instructions: Perfect chest x-ray, laboratory values and your rapid strep are all unremarkable. Your Covid swab is pending from earlier today. Plenty of fluids to avoid dehydration. [id number] Tylenol and/or Motrin as directed for discomfort and/or fever-body aches. [id number] decongestions and antihistamines for symptomatic control as directed as well. I do recommend that you quarantine until your Covid test has resulted, if negative you can end quarantine, if positive you will need continue to quarantine. Please watch for new or worsening symptoms and return to the ER for any concerns. It is extremely important you take your blood pressure medication as directed. Please contact your primary care provider tomorrow to discuss your ER visit need for outpatient eval Stand Alone Forms: Work Release Medical Decision Making 25-year-old gentleman presents with URI-like symptoms for the past 4-5 days, presents with a fever and hypertensive. Covid swab is already pending, will obt ain CBC, CMP, chest x-ray, rapid strep test, IV access, give IV Toradol, normal saline and p.o. Tylenol Chest x-ray negative. CBC, CMP, rapid strep all unremarkable. Strep culture pending Patient responded nicely to IV Toradol, saline, p.o. Tylenol. No longer hypertensive, he is now afebrile. We discussed the importance of treating his symptoms with [id number] medications. No clear source of bacterial infection, no antibiotics required. Recommend quarantining until his Covid test results negative, this very well could be Covid and if it results positive he will need to quarantine longer. I will provide a work note. Standard discharge and return precautions provided This documentation was generated using [email or web address] system, please disregard any oddities of phrase or misspellings. Medical Records Medical records reviewed: Yes I reviewed the patient's medical records. Imaging Data Radiologic Study: Attestation: I personally reviewed and interpreted this imaging study as follows: Imaging: X-Ray Radiologist's impression: PROCEDURE INFORMATION: Exam: XR Chest Exam date and time: 11/01/2020 5:45 PM Age: 25 years old Clinical indication: Cough and fever; Patient HX: Fever cough TECHNIQUE: Imaging protocol: XR of the chest. Views: 1 view. COMPARISON: CR CHEST 2 VIEWS PA,LAT 04/12/2015 1:58 PM FINDINGS: Lungs: Unremarkable. No consolidation. Pleural spaces: Unremarkable. No pleural effusion. No pneumothorax. Heart/Mediastinum: Unremarkable. No cardiomegaly. Bones/joints: Unremarkable. IMPRESSION: No acute findings. Lab Data Lab results reviewed: Yes I reviewed the patient's lab results. Labs: 11/01/20 17:20 Pharynx Group A Streptococcus Culture - Pending Laboratory Tests Range/Units 11/01/20 11/01/20 17:35 17:35 WBC (4.4-10.8) 10^3/uL 6.05 RBC (4.36-5.78) 10^6/uL 5.59 Hgb (13.5-17.5) g/dL 14.8 Hct (40.0-50.0) % 46.8 MCV (80-95) fL 83.7 MCH (27.0-33.0) pg 26.5 L MCHC (32.0-36.0) % 31.6 L RDW (11.8-14.1) % 13.9 Plt Count (130-400) 10^3/uL 183 MPV (8.0-11.0) fL 10.9 Immature Gran % 0.5 Neutrophils % 56.4 Lymphocytes % 32.1 Monocytes % 8.4 Eosinophils % 2.1 Basophils % 0.5 Nucleated RBC % % 0 Absolute Neutrophils (1.2-6.7) 10^3/uL 3.41 Absolute Lymphocytes (1.2-3.4) 10^3/uL 1.94 Absolute Monocytes (0.1-0.8) 10^3/uL 0.51 Absolute Eosinophils (0.0-0.7) 10^3/uL 0.13 Absolute Basophils (0.0-0.2) 10^3/uL 0.03 Sodium (136-145) mmol/L 139 Potassium (3.5-5.1) mmol/L 4.1 Chloride (98-107) mmol/L 103 Carbon Dioxide (21.0-32.0) mmol/L 28.9 Anion Gap (3-11) mmol/L 7.1 BUN (7-18) mg/dL 12 Creatinine (0.70-1.30) mg/dL 1.1 Estimated GFR/1.73 m2 (mL/min/1.73m2) >= 60.00 Glucose (74-106) mg/dL 87 Calcium (8.5-10.1) mg/dL 8.8 Total Bilirubin (0.2-1.0) mg/dL 0.4 AST (15-37) U/L 36 ALT (16-63) U/L 56 Alkaline Phosphatase (46-116) U/L 92 Total Protein (6.4-8.2) g/dL 8.2 Albumin (3.4-5.0) g/dL 3.6 HPI General Mode of arrival: ambulatory . Date/Time Provider Initiated Documentation: 11/01/20 17:29 . Limitations to Documentation: no limitations . Information obtained by: patient . HPI Narrative: 25-year-old gentleman, past medical history of hypertension, asthma, morbid obesity, esophagitis, presents to the ER complaining of mildly sore throat, body aches, fever T-max 102.4, slightly dry cough that began 4 days ago. He states that he has been around someone who was diagnosed with Covid. He just had a Covid at the Covid tent prior to his ER evaluation. He is also complaining of bilateral ear pain. He did not go to work today, will need a work note. He has not taken any over-the- counter medications as he states he does not like taking medications and he openly admits that he typically only take his hypertension medication a few times a week. He denies eye discharge, chest pain, shortness of breath, productive cough, abdominal pain, nausea, vomiting, skin vascular pain or swelling in his legs Related Data Home Medications Medication Instructions Recorded Confirmed levalbuterol tartrate [Xopenex HFA] 2 puff INHALATION Q4H PRN #1 07/14/12 11/01/20 inhaler loratadine 10 mg PO DAILY PRN #60 tab 09/16/14 11/01/20 mometasone 50 mcg/actuation nasal 1 spray NS DAILY PRN #1 gm 04/21/18 11/01/20 spray Cholestyramine Light 4 gm PO BID #231 gm 05/02/18 11/01/20 lansoprazole [Prevacid] 30 mg PO DAILY #30 cap 05/02/18 11/01/20 dicyclomine 10 mg PO DAILY 11/01/20 11/01/20 lisinopril 10 mg PO DAILY 11/01/20 11/01/20 Previous Rx's Medication Instructions Recorded Cholestyramine Light 4 gm PO BID #231 gm 05/02/18 lansoprazole [Prevacid] 30 mg PO DAILY #30 cap 05/02/18 Allergies Allergy/AdvReac Type Severity Reaction Status Date / Time No Known Drug Allergies Allergy Verified 11/01/20 17:54 enviornmental Allergy Mild uri Uncoded 11/01/20 17:54 symptoms General Stated Complaint: GenMedical ALLISON: 3 Review of Systems Constitutional Constitutional: Reports fever(s) and Reports headache(s) Eyes Eyes: Denies eye discharge ENT Ears, Nose, Mouth, and Throat: Reports headache(s) and Reports sore throat Cardiovascular Cardiovascular: Denies chest pain and Denies dyspnea Respiratory Respiratory: Reports cough and Denies dyspnea Gastrointestinal Gastrointestinal: Denies abdominal pain, Denies nausea and Denies vomiting Genitourinary Genitourinary: Denies dysuria Musculoskeletal Musculoskeletal: Reports myalgias Integumentary/Breasts Skin/Breast: Denies rash Neurologic Neurologic: Reports headache(s) [facility] Medical History Allergic rhinitis POLLEN ALLERGY Anxiety Asthma MILD INTERMIT Diarrhea per Dr Henry referral 04/10/18, several years of diarrhea up to 12 episodes per day; normal TTG; negative O&P, bacterial pathogens, Cdiff and WBCs. Obesity Surgical History GALLSTONES IN INFANT Family History Mother Essential hypertension ? Father Essential hypertension RESOLVED Grandfather Essential hypertension Maternal Aunt Diabetes SIBLING Asthma Social History Smoking/Tobacco Use Status: Current-Occasional Tobacco Type: e-cigarettes Smoking risk assessment performed?: Yes Alcohol Intake: current Alcohol Intake frequency: holidays/special occasions only Alcohol type: hard liquor Drug use: Never Substance use type: does not use Do you feel safe at home: Yes Do you feel safe in your relationship?: Yes Exam Const General: cooperative, healthy appearing, comfortable and no acute distress Orientation: alert, awake and oriented x3 HENMT Head: normal to inspection, normocephalic and atraumatic Ears: external ears normal, EAC's normal and TM abnormal erythematous bilaterally (Minimally) General nose exam: nasal discharge clear Mouth: moist mucous membranes Throat: uvula midline, posterior oropharynx abnormal erythema (Slightly) and postnasal drainage Eyes General: appearance normal, both eyes and all related structures Conjunctivae: conjunctivae normal Neck Neck: normal visual inspection, full ROM, no lymphadenopathy, no meningeal signs, trachea midline, supple and nontender Resp Effort & Inspection: normal respiratory effort and able to speak in complete sentences Auscultation: clear to auscultation bilaterally Cardio Rate: regular rate Rhythm: regular rhythm GI Inspection: obesity Palpation: soft and nontender Back/Spine/Pelvis Back: No back tenderness Skin General skin exam: no rashes or lesions noted Neuro General: patient alert, patient awake, moves all extremities and no focal motor deficits Cognition: normal cognition Speech: speech normal Sensory Exam: no sensory deficits noted Psych Appearance: grossly normal Mental Status: mental status grossly normal Course Vital Signs Vital signs: Vital Signs Temperature 37.8 C H 11/01/20 17:20 Pulse 79 11/01/20 17:20 Blood Pressure 168/100 H 11/01/20 17:20 Pulse Oximetry 98 11/01/20 17:20 Temperature 37.6 C 11/01/20 19:19 Temperature Source Oral 11/01/20 19:19 Pulse 78 11/01/20 19:19 Respiratory Rate 20 11/01/20 19:19 Respiratory Effort Non-Labored 11/01/20 18:04 Respiratory Depth Normal 11/01/20 18:04 Respiratory Pattern Normal 11/01/20 18:04 Blood Pressure 133/78 11/01/20 19:19 Blood Pressure Position Sitting 11/01/20 17:20 Pulse Oximetry 96 11/01/20 19:19 Oxygen Delivery Method Room Air 11/01/20 19:19 Oxygen Flow Rate 0 11/01/20 19:19 Pain Level 7 11/01/20 17:59 Lab/Test Results Lab/Test Results: 11/01/20 17:20 Pharynx Group A Streptococcus Culture - Pending Laboratory Tests Range/Units 11/01/20 11/01/20 17:35 17:35 WBC (4.4-10.8) 10^3/uL 6.05 RBC (4.36-5.78) 10^6/uL 5.59 Hgb (13.5-17.5) g/dL 14.8 Hct (40.0-50.0) % 46.8 MCV (80-95) fL 83.7 MCH (27.0-33.0) pg 26.5 L MCHC (32.0-36.0) % 31.6 L RDW (11.8-14.1) % 13.9 Plt Count (130-400) 10^3/uL 183 MPV (8.0-11.0) fL 10.9 Immature Gran % 0.5 Neutrophils % 56.4 Lymphocytes % 32.1 Monocytes % 8.4 Eosinophils % 2.1 Basophils % 0.5 Nucleated RBC % % 0 Absolute Neutrophils (1.2-6.7) 10^3/uL 3.41 Absolute Lymphocytes (1.2-3.4) 10^3/uL 1.94 Absolute Monocytes (0.1-0.8) 10^3/uL 0.51 Absolute Eosinophils (0.0-0.7) 10^3/uL 0.13 Absolute Basophils (0.0-0.2) 10^3/uL 0.03 Sodium (136-145) mmol/L 139 Potassium (3.5-5.1) mmol/L 4.1 Chloride (98-107) mmol/L 103 Carbon Dioxide (21.0-32.0) mmol/L 28.9 Anion Gap (3-11) mmol/L 7.1 BUN (7-18) mg/dL 12 Creatinine (0.70-1.30) mg/dL 1.1 Estimated GFR/1.73 m2 (mL/min/1.73m2) >= 60.00 Glucose (74-106) mg/dL 87 Calcium (8.5-10.1) mg/dL 8.8 Total Bilirubin (0.2-1.0) mg/dL 0.4 AST (15-37) U/L 36 ALT (16-63) U/L 56 Alkaline Phosphatase (46-116) U/L 92 Total Protein (6.4-8.2) g/dL 8.2 Albumin (3.4-5.0) g/dL 3.6 POC Strep Test-BARBRA(Rapid) Start: 11/01/20 1 7:29 Freq: .Rapid Strep Test Status: Active Protocol: Document 11/01/20 17:30 (Rec: 11/01/20 17:31 [id number]) Strep test-BARBRA(Rapid)-POC POC-Strep test-BARBRA (Rapid) Negative POC-Strep test-BARBRA (Rapid) Negative
[2020-11-01 20:10] VITALS: BP 133/78; PULSE 78; RESP 20; TEMP 37.6; O2SAT 96
== END 2020-11-01 20:09 | disposition home or self-care (01) ==
PROVIDERS: Emergency Provider Physician Assistant; PCP Physician Assistant Medical
DX: J06.9 Acute upper respiratory infection, unspecified (principal); R50.9 Fever, unspecified; R05 Cough
CPT/HCPCS: 36415; 80053; 87880; 96361; 96374; 99284; 71045; 85025; 87081; J1885